=== PATIENT | male | born 1975 | race Two or more races ===

== ENCOUNTER 2021-12-26 19:55 | Emergency (ER) | payer MEDICAID, OTHER ==
[~2021-12-26] VITALS: Ht 175.3 cm; Wt 200.0 kg
[2021-12-26 20:40] VITALS: BP 148/88
[2021-12-26] MEDS ORDERED: KETOROLAC TROMETH 60MG/2ML VIAL IM ONE (23:45)
[2021-12-26] MEDS ORDERED: CYCL-837 PO (23:49)
[2021-12-26] MEDS ORDERED: IBUP800T26 PO (23:49)
== END 2021-12-26 23:53 | disposition home or self-care (01) ==
LOC: ER 19:55
DX: S46.912A Strain of unspecified muscle, fascia and tendon at shoulder and upper arm level, left arm, initial encounter (principal); S30.1XXA Contusion of abdominal wall, initial encounter; Z79.1 Long term (current) use of non-steroidal anti-inflammatories (NSAID); Z79.899 Other long term (current) drug therapy; V49.9XXA Car occupant (driver) (passenger) injured in unspecified traffic accident, initial encounter; Y93.89 Activity, other specified; Y92.410 Unspecified street and highway as the place of occurrence of the external cause; Y99.8 Other external cause status
CPT/HCPCS: 73000; 73030; 96372; 99284; J1885